=== PATIENT | female | born 1990 | race Caucasian/White ===

== ENCOUNTER 2020-01-01 15:25 | Emergency (ER) | payer OTHER ==
[~2020-01-01] VITALS: Ht 157.5 cm; Wt 54.9 kg
[2020-01-01] MEDS ORDERED: PRENATAL VITAM1 EAC7 (15:56)
== END 2020-01-01 20:03 | disposition home or self-care (01) ==
LOC: ER 15:25
DX: N83.292 Other ovarian cyst, left side (principal); N83.291 Other ovarian cyst, right side

== ENCOUNTER 2020-01-05 05:58 | Emergency (ER) | payer OTHER ==
[~2020-01-05] VITALS: Ht 157.5 cm; Wt 52.6 kg
[~2020-01-05 05:58] MED LIST: PRENATAL VITAM1 EAC7
== END 2020-01-05 17:37 | disposition home or self-care (01) ==
LOC: ER 05:58
DX: O02.1 Missed abortion (principal); O03.4 Incomplete spontaneous abortion without complication; O26.851 Spotting complicating pregnancy, first trimester; O36.80X1 Pregnancy with inconclusive fetal viability, fetus 1; Z3A.08 8 weeks gestation of pregnancy